=== PATIENT | female | born 1960 | race Caucasian/White ===

== ENCOUNTER → 2016-07-19 | Outpatient (CLI) | payer BC ==
[~2016-07-19] MED LIST: ALLERGY MED; CELEXA20 MG PO; CENTRUM PO; CITALOPRAM HBR40 MG; FENOFIBRATE48 MG PO; HAIR, SKIN & N1 EACH PO; HYDROCODON-ACE1 EAC5 PO; HYDROXYZINE HCL25 M1 DOB; HYDROXYZINE HCL25 M1 PO; HYOMAX0.125 MG PO; MELOXICAM; OXYCODONE-ACET1 EACH PO; PREVACID 24HR15 MG PO; PROTONIX PO; WELCHOL625 MG PO
--- NOTE | ~2016-07-19 | CR63 ---
[facility] A Service of [facility] & [facility] RADIOLOGY TEXT RESULTS PATIENT: HUGO BOOTH LOCATION: [facility] : 62 UNIT #: [id number] AGE: [address]: Pascual Blackwood MD SEX: F ORDER DR: [id number] [facility] [address] [place], [place] [address] [id number] O MR#: [id number] Acc #: [id number] NAME: HUGO BOOTH : 1960 SEX: F STUDY DATE/TIME: 07/19/2016 8:29 UNIT: [facility] ROOM: STUDY DESCRIPTION: CR Chest 2 View Attending Physician: Pascual Blackwood M.D. Referring Physician: Pascual Blackwood M.D. Ordering Physician: Pascual Blackwood M.D. Primary Care Physician: Little Dixon M.D. MEDICAL IMAGING REPORT This report is preliminary unless electronic signature is present EXAM Chest 07/19/2016 HISTORY 56-year-old woman with unexplained cough, dysphasia. Congestion, short of breath, high blood pressure. Patient scheduled for esophagram today. Symptoms x1 year. COMPARISON None. FINDINGS Two-view chest demonstrates normal cardiac size and configuration. Hilar structures and mediastinal contours are preserved. Bilateral lungs are expanded and clear. Costophrenic angles are clear. Fixation hardware proximal right humerus noted. IMPRESSION Negative chest. No acute finding. Dictated by... Philippe Merino M.D. THIS IS AN ELECTRONICALLY VERIFIED REPORT Philippe Merino M.D. at 07/19/2016 1:23 PM TAWANA/marvin TD: 07/19/2016 10:23 JOB #: [id number] MEDICAL IMAGING REPORT Page 1 of 1 COPY
--- NOTE | ~2016-07-19 | CR97 ---
[facility] A Service of [facility] & [facility] RADIOLOGY TEXT RESULTS PATIENT: HUGO BOOTH LOCATION: [facility] : 62 UNIT #: [id number] AGE: [address]: Pascual Blackwood MD SEX: F ORDER DR: [id number] [facility] [address]. [place], [place] [address] [id number] O MR#: [id number] Acc #: [id number] NAME: HUGO BOOTH : 1960 SEX: F STUDY DATE/TIME: 07/19/2016 8:48 UNIT: [facility] ROOM: STUDY DESCRIPTION: CR Esophagram Attending Physician: Pascual Blackwood M.D. Referring Physician: Pascual Blackwood M.D. Ordering Physician: Pascual Blackwood M.D. Primary Care Physician: Little Dixon M.D. MEDICAL IMAGING REPORT This report is preliminary unless electronic signature is present EXAM Barium esophagram INDICATION Cough and dysphagia for 1 year. Heartburn. The fluoro time is 0.8 minutes. 8 images were taken. FINDINGS Evaluation of the cervical esophagus is within normal limits. There is no evidence of aspiration or laryngeal penetration. Evaluation of the thoracic esophagus demonstrates some mild tertiary contractions and a small sliding hiatal hernia. No evidence for reflux is noted. IMPRESSION Small sliding hiatal hernia. No evidence for reflux. Dictated by... Sal Sneed M.D. THIS IS AN ELECTRONICALLY VERIFIED REPORT Sal Sneed M.D. at 07/20/2016 7:46 AM ISAMAR/luis TD: 07/19/2016 22:50 JOB #: [id number] MEDICAL IMAGING REPORT Page 1 of 1 COPY
== END | disposition home or self-care (01) ==
LOC: CRAD 07-14 08:30
DX: R13.10 Dysphagia, unspecified (principal); K44.9 Diaphragmatic hernia without obstruction or gangrene; R05 Cough
CPT/HCPCS: 71020; 74220

== ENCOUNTER → 2016-08-24 | Day surgery (SDC) | payer BC ==
--- NOTE | ~2016-08-24 | OR ---
Unit #: [id number] #: [id number] Patient: HUGO BOOTH [id number] [address] [address] [id number] O MR#: [id number] NAME: HUGO BOOTH ROOM: Date of Procedure: 08/24/2016 Admission Date: 08/24/2016 Surgeon: Bruno Smart M.D. : 1960 Attending Physician: Bruno Smart M.D. Primary Care Physician: Little Dixon M.D. OPERATIVE REPORT PROCEDURE PERFORMED Esophagogastroduodenoscopy with biopsy. INDICATIONS FOR PROCEDURE The patient with chronic cough, unexplained. ENT evaluation has been negative. She has chronic GERD symptoms, also undergoing evaluation with upper endoscopy. MEDICATIONS Monitored anesthesia. POSTOPERATIVE FINDINGS 1. Small hiatal hernia. 2. Mild gastritis. Biopsies taken. 3. Normal duodenum and distal duodenum. PLAN 1. Follow up on the pathology report. 2. Consider pulmonary function testing with optical effects line up person. DESCRIPTION OF PROCEDURE The patient was explained of the procedure, risks, and benefits along with the risks and benefits of anesthesia. She was brought to the endoscopy room. Propofol anesthesia was given. Bite block was placed. The scope was passed down the mouth into the esophagus, stomach, duodenum, and distal duodenum. Findings as described. She tolerated it well. No major complications were seen. Dictated by... Marcos Berrios/gosia TD: 08/25/2016 04:26 JOB #: [id number] CC: Little Dixon M.D. Unit #: [id number] #: [id number] Patient: HUGO BOOTH OPERATIVE REPORT Page 1 of 1 X Bruno Smart MD X PROCEDURE OPERATIVE NOTE
== END | disposition home or self-care (01) ==
LOC: COPS 09:06
DX: K21.9 Gastro-esophageal reflux disease without esophagitis (principal); K44.9 Diaphragmatic hernia without obstruction or gangrene; I10 Essential (primary) hypertension; Z87.891 Personal history of nicotine dependence; Z86.010 Personal history of colon polyps; Z88.6 Allergy status to analgesic agent; Z91.048 Other nonmedicinal substance allergy status; Z79.1 Long term (current) use of non-steroidal anti-inflammatories (NSAID); Z79.899 Other long term (current) drug therapy; Z98.51 Tubal ligation status; Z98.890 Other specified postprocedural states
CPT/HCPCS: 88305; 88312

== ENCOUNTER 2016-10-12 12:59 | Emergency (ER) | payer BC ==
[~2016-10-12] VITALS: Ht 157.5 cm; Wt 81.6 kg
--- NOTE | ~2016-10-12 | EKG ---
PATIENT: HUGO BOOTH UNIT #: [id number] Ventricular Rate: 74 BPM Atrial Rate: 74 BPM P-R Interval: 136 ms QRS Duration: 80 ms Q-T Interval: 384 ms QTC Calculation(Bezet): 426 ms P [place]: 48 degrees Calculated R [place]: 0 degrees Calculated T [place]: -11 degrees Diagnosis Line: Normal sinus rhythm Diagnosis Line: Voltage criteria for left ventricular hypertrophy Diagnosis Line: Nonspecific T wave abnormality Diagnosis Line: Abnormal ECG Diagnosis Line: Diagnosis Line: Confirmed by CARLIE PATRICK MD ([id number]) on Diagnosis Line: 10/12/2016 10:48:02 PM INTERPRETING MD: JASON
--- NOTE | ~2016-10-12 | CR72 ---
[facility] A Service of [facility] RADIOLOGY TEXT RESULTS PATIENT: HUGO BOOTH LOCATION: [facility] : 62 UNIT #: [id number] AGE: [address]: Donnie Sharma MD SEX: F ORDER DR: [id number] [facility] [address] [place], [place] [address] [id number] E MR#: [id number] Acc #: [id number] NAME: HUGO BOOTH : 1960 SEX: F STUDY DATE/TIME: 10/12/2016 15:33 UNIT: [facility] ROOM: STUDY DESCRIPTION: CR Chest Single View Portable Attending Physician: Donnie Sharma M.D. Ordering Physician: Donnie Sharma M.D. Primary Care Physician: No Primary Care Physician MEDICAL IMAGING REPORT This report is preliminary unless electronic signature is present EXAM Single view chest. INDICATIONS Chest pain for 1 day. Shortness of air. FINDINGS Single portable AP view of the chest compared to 07/19/2016. Heart and mediastinal contours are unchanged. Lungs are clear. No pleural effusion. There is surgical hardware in the right proximal femur. IMPRESSION No acute cardiopulmonary findings. Dictated by... Nasir Mcdonald M.D. THIS IS AN ELECTRONICALLY VERIFIED REPORT Nasir Mcdonald M.D. at 10/13/2016 8:47 AM HEATHER/jae TD: 10/12/2016 20:11 JOB #: [id number] MEDICAL IMAGING REPORT Page 1 of 1 COPY
[2016-10-12 13:54] LABS: BASOPHIL# 0.1 X10e3 (0-0.3); BASOPHIL% 0.9 % (0-2.5); EOSINOPHIL# 0.2 X10e3 (0-0.7); HEMATOCRIT 38.1 % (35.0-45.0); HEMOGLOBIN 13.2 gm/dL (12.0-16.0); LYMPHOCYTE# 1.7 X10e3 (1.0-3.5); LYMPHOCYTE% 27.8 % (17.0-45.0); MEAN CELL VOLUME 87.1 FL (83-96); MEAN CORPUSCULAR HEMOGLOBIN 30.2 PG (28-34); MEAN CORPUSCULAR HGB CONC 34.7 g/dL (30-36); MEAN PLATELET VOLUME 7.2 FL (6.5-11.5); MONOCYTE# 0.6 X10e3 (0-1.0); MONOCYTE% 9.5 % (3.0-12.0); NEUTROPHIL# 3.6 X10e3 (1.5-7.1); NEUTROPHIL% 58.8 % (40-75); PLATELET COUNT 391 X10e3 (140-420); RED BLOOD COUNT 4.38 X10e (3.90-5.30); RED CELL DISTRIBUTION WIDTH 12.7 % (11.0-15.5); WHITE BLOOD COUNT 6.1 X10e3 (4.0-10.5)
[2016-10-12 13:55] LABS: DIFF IND NO
[2016-10-12 14:33] LABS: POC - TROPONIN <0.05 ng/mL (<=0.05)
[2016-10-12 14:52] LABS: ALBUMIN SERUM 4.3 g/dL (3.5-5.0); BILIRUBIN, DIRECT 0.1 mg/dL (0.0-0.2); BILIRUBIN,INDIRECT 0.5 mg/dL (0.0-0.9); BILIRUBIN,TOTAL 0.6 mg/dL (0.2-2.0); BUN/CREATININE RATIO 18.33; CALCIUM SERUM 9.2 mg/dL (8.4-10.2); CREATININE SERUM 0.6 mg/dL (0.6-1.4); GLOM FILT RATE Estimated 102.6 mL/min (>60); PROTEIN TOTAL SERUM 7.3 g/dL (6.0-8.3)
[2016-10-12 17:12] LABS: POC - CKMB <1.0 ng/mL (0.0-7.9); POC - TROPONIN <0.05 ng/mL (<=0.05)
== END 2016-10-12 18:10 | disposition home or self-care (01) ==
LOC: CED 12:59
PROVIDERS: Emergency Medicine
DX: R07.89 Other chest pain (principal)
CPT/HCPCS: 36415; 71010; 80048; 80076; 82553; 84484; 85025; 93005; 99285

== ENCOUNTER 2016-11-10 13:05 | Emergency (ER) | payer BC ==
[~2016-11-10] VITALS: Ht 157.5 cm; Wt 83.9 kg
--- NOTE | ~2016-11-10 | CT71 ---
[facility] A Service [facility] RADIOLOGY TEXT RESULTS PATIENT: HUGO BOOTH LOCATION: [facility] : 62 UNIT #: [id number] AGE: [address]: Ozzie Marshall MD SEX: F ORDER DR: [id number] [facility] [address] [place], [place] [address] [id number] E MR#: [id number] Acc #: [id number] NAME: HUGO BOOTH : 1960 SEX: F STUDY DATE/TIME: 11/10/2016 15:23 UNIT: [facility] ROOM: STUDY DESCRIPTION: CT Head Wo Contrast Attending Physician: Al Marshall M.D. Ordering Physician: Ed Doctor [id number] [facility] Primary Care Physician: Little Dixon M.D. MEDICAL IMAGING REPORT This report is preliminary unless electronic signature is present EXAM CT head, noncontrast, 11/10/2016 HISTORY A 56-year-old female in the ED complaining of 2-day history of headache described as pressure over the upper portion of her head. Symptoms for about 2 days. She also notes abdomen pain. TECHNIQUE CT examination of the head was performed without IV contrast. This CT exam was performed with one or more of the following radiation dose reduction techniques: automatic exposure control, adjustment of mA and/or kV according to patient size, and iterative reconstruction. FINDINGS The examination is negative. No evidence of intracranial hemorrhage, mass, mass effect, cerebral edema, hydrocephalus or additional abnormality. IMPRESSION Negative head CT examination. Dictated by... Tj Carrera M.D. THIS IS AN ELECTRONICALLY VERIFIED REPORT Tj Carrera M.D. at 11/11/2016 9:50 PM EDUARDO/shawn TD: 11/11/2016 03:42 JOB #: [id number] [facility] A [facility] RADIOLOGY TEXT RESULTS PATIENT: HUGO BOOTH LOCATION: [facility] : 62 UNIT #: [id number] AGE: [address]: Ozzie Marshall MD SEX: F ORDER DR: MEDICAL IMAGING REPORT Page 1 of 1 COPY
[2016-11-10 14:13] LABS: BASOPHIL# 0.1 X10e3 (0-0.3); BASOPHIL% 0.7 % (0-2.5); EOSINOPHIL# 0.2 X10e3 (0-0.7); EOSINOPHIL% 2.1 % (0.0-7.0); HEMATOCRIT 33.6 % (35.0-45.0); HEMOGLOBIN 11.8 gm/dL (12.0-16.0); LYMPHOCYTE# 1.7 X10e3 (1.0-3.5); LYMPHOCYTE% 22.8 % (17.0-45.0); MEAN CELL VOLUME 87.1 FL (83-96); MEAN CORPUSCULAR HEMOGLOBIN 30.5 PG (28-34); MEAN PLATELET VOLUME 7.5 FL (6.5-11.5); MONOCYTE# 0.7 X10e3 (0-1.0); MONOCYTE% 8.8 % (3.0-12.0); NEUTROPHIL% 65.6 % (40-75); PLATELET COUNT 317 X10e3 (140-420); RED BLOOD COUNT 3.86 X10e (3.90-5.30); RED CELL DISTRIBUTION WIDTH 12.6 % (11.0-15.5); WHITE BLOOD COUNT 7.6 X10e3 (4.0-10.5)
[2016-11-10 14:15] LABS: DIFF IND NO
[2016-11-10 14:41] LABS: ALBUMIN SERUM 4.2 g/dL (3.5-5.0); ALKALINE PHOSPHATASE 69 U/L (32-92); ALT (SGPT) 18 U/L (10-40); AMYLASE 27 U/L (0-46); AST (SGOT) 19 U/L (10-42); BILIRUBIN,TOTAL 0.2 mg/dL (0.2-2.0); BLOOD UREA NITROGEN 16 mg/dL (9-23); CARBON DIOXIDE 25 mmol/L (22-31); CHLORIDE 102 mmol/L (100-111); GLOM FILT RATE Estimated 63.4 mL/min (>60); GLUCOSE FASTING 100 mg/dL (70-110); LIPASE 43 U/L (22-51); POTASSIUM 4.1 mmol/L (3.5-5.1); PROTEIN TOTAL SERUM 6.7 g/dL (6.0-8.3); SODIUM 134 mmol/L (135-145)
[2016-11-10 14:42] LABS: BILIRUBIN, DIRECT <0.1 mg/dL (0.0-0.2); BILIRUBIN,INDIRECT 0.1 mg/dL (0.0-0.9)
[2016-11-10 15:05] LABS: URINE SOURCE CLEAN CATCH
[2016-11-10 15:19] LABS: URINE APPEARANCE CLEAR; URINE BILIRUBIN NEG (NEG); URINE BLOOD NEG (NEG); URINE COLOR YELLOW; URINE GLUCOSE NEG (NEG); URINE KETONE NEG (NEG); URINE LEUKOCYTE ESTERASE TRACE (NEG); URINE NITRATE NEG (NEG); URINE PH 5.5 (5-8); URINE PROTEIN NEG (NEG); URINE SPECIFIC GRAVITY 1.008 (1.003-1.035); URINE UROBILINOGEN 0.2 MG/DL (NEG)
[2016-11-10 15:21] LABS: URBCS1 AUWI 0-2 /[HPF] (0-2); URINE BACTERIA AUWI NEG (NEGATIVE); URINE SQUAMOUS EPITHELIAL CELL NONE SEEN /[HPF]
[2016-11-10 15:26] LABS: CULTURE INDICATED? NO
== END 2016-11-10 17:37 | disposition home or self-care (01) ==
LOC: CED 13:05
PROVIDERS: Emergency Medicine
DX: R51 Headache (principal); R10.84 Generalized abdominal pain; K21.9 Gastro-esophageal reflux disease without esophagitis; Z98.51 Tubal ligation status; Z86.79 Personal history of other diseases of the circulatory system; Z88.5 Allergy status to narcotic agent
CPT/HCPCS: 36415; 70450; 80048; 80076; 81003; 82150; 83690; 85025; 96374; 96375; 99284; J1885; J2405